=== PATIENT | female | born 1980 | race African-American/Black ===

== ENCOUNTER 2017-03-24 21:36 | Emergency (ER) | payer OTHER ==
--- NOTE | 2017-03-24 21:41 | PDOC ---
History of Present Illness - General History Source: Patient Exam Limitations: No Limitations - History of Present Illness Initial Comments: 03/24/17 21:46 The patient is a 36 year old female, with no significant past medical history, who presents today complaining of a left foot injury and swelling s/p twisting her foot on the sidewalk at 5:00pm. The patient states that she twisted her foot on uneven sidewalk. The patient is ambulatory but limping. Denies falling. Denies head trauma or any other trauma. Allergies: none reported Review of Systems General: No fevers or chills, no weakness, no weight loss HEENT: No change in vision. No sore throat,. No ear pain CardioVascular: No chest pain or shortness of breath Respiratory:No cough, or wheezing. Gastrointestinal: no nausea, vomiting, diarrhea or constipation, No rectal bleeding Genitourinary: No dysuria, hematuria, or frequency Musculoskeletal: Yes: left foot injury and swelling. No joint or muscle pain Neurologic: No headache, vertigo, dizziness or loss of consciousness Psychiatric: nor depression Skin: No rashes or easy bruising Endocrine: no increased thirst or abnormal weight change Allergic: no skin or latex allergy All other systems reviewed and normal Physical Exam GENERAL: The patient is awake, alert, and fully oriented, in no acute distress. HEAD: Normal with no signs of trauma. EYES: Pupils equal, round and reactive to light, extraocular movements intact, sclera anicteric, conjunctiva clear. LEFT FOOT: Swelling and ecchymoses over base of 5th metatarsal with tenderness on palpation. Neurovascular intact. NEUROLOGICAL: Normal speech, normal gait. PSYCH: Normal mood, normal affect. SKIN: Warm, Dry, normal turgor, no rashes or lesions noted. <Galina Pritchett - Last Filed: 03/24/17 21:46> - General History Source: Patient Exam Limitations: No Limitations - History of Present Illness Initial Comments: 03/24/17 23:08 A portion of this note was documented by scribe services under my direction. I have reviewed the details of the note, within reason, and agree with the documentation. The case summary and management plan written by me. X-ray shows fracture base of fifth metatarsal Assessment and plan: This is a 36-year-old female comes in complaining of right foot pain there is a cute fracture base of the fifth metatarsal. Patient put in a bulky dressing given a Crutches will follow-up with orthopedist <Jass Guadalupe I - Last Filed: 03/24/17 23:11> - General Chief Complaint: Injury Stated Complaint: TRIPPED INJURED LEFT ANKLE Time Seen by Provider: 03/24/17 21:40 Past History <Galina Pritchett - Last Filed: 03/24/17 21:46> <Jass Guadalupe I - Last Filed: 03/24/17 23:11> - Past Medical History Allergies/Adverse Reactions: Allergies Allergy/AdvReac Type Severity Reaction Status Date / Time No Known Allergies Allergy Verified 03/24/17 21:37 Home Medications: Ambulatory Orders Albuterol Sulfate Inhaler - [Ventolin Hfa Inhaler -] 1 - 2 inh PO QID 03/24/17 *DC/Admit/Observation/Transfer - Attestations Scribe Attestion: 03/24/17 21:46 Documentation prepared by SWETA Davenport, acting as medical imaging technologist for Jass Guadalupe MD. <Galina Pritchett - Last Filed: 03/24/17 21:46> - Discharge Dispostion Admit: No <Jass Guadalupe I - Last Filed: 03/24/17 23:11> Diagnosis at time of Disposition: Fracture of fifth metatarsal bone Qualifiers: Encounter type: initial encounter Fracture type: closed Fracture alignment: displaced Laterality: left Qualified Code(s): S92.352A - Displaced fracture of fifth metatarsal bone, left foot, initial encounter for closed fracture - Discharge Dispostion Disposition: HOME Condition at time of disposition: Stable - Patient Instructions Additional Instructions: Leave bulky dressing in place until you see the orthopedist. If he needed an orthopedist call Dr. Gross at [phone] for an appointment in the morning.it was mobile I was on last Use your crutches as needed for walking. Tylenol or Motrin as needed for pain. Return to the emergency department immediately with ANY new, persistent or worsening symptoms. Continue any medications as previously prescribed by your physician. You should follow up with your primary doctor as soon as possible regarding today's emergency department visit. . Please make sure your doctor reviews the results of your emergency evaluation. Thank you for coming to the Emergency Department today for your care. It was a pleasure to see you today. Please note that your evaluation is INCOMPLETE until you follow-up with your doctor.
[2017-03-24 21:52] VITALS: BP 126/80; PULSE 76; TEMP 98.1; BMI 34.5
== END 2017-03-24 23:28 | disposition home or self-care (01) ==
LOC: FER 21:36
DX: S92.352A Displaced fracture of fifth metatarsal bone, left foot, initial encounter for closed fracture (principal); X58.XXXA Exposure to other specified factors, initial encounter; Y93.89 Activity, other specified; Y92.410 Unspecified street and highway as the place of occurrence of the external cause
CPT/HCPCS: 73630-TC-LT; 84703; 99281-25